=== PATIENT | female | born 1980 | race Hispanic/Latino ===

== ENCOUNTER 2018-10-17 12:07 | Emergency (ER) | payer SELFPAY ==
[2018-10-17 13:30] LABS: Urine Bacteria LOADED /HPF (<20); Urine Culture Reflex Order REFLEXED; Urine RBC <5 /HPF (NONE SEEN)
[2018-10-17 13:33] LABS: Urine Blood NEGATIVE (NEG); Urine Glucose NEGATIVE (NEG); Urine Protein NEGATIVE (NEG); Urine Specific Gravity 1.025 (1.005-1.030); Urine pH 6.5 (5.0-7.0)
[2018-10-17 13:35] LABS: Absolute Lymphocytes (CBC) 1.9 K/uL (0.7-4.9); Absolute Monocytes 0.4 K/uL (0.1-1.3); Absolute Neutrophil 3.8 K/uL (1.8-8.0); Basophils % 0.8 % (0-1.3); Eosinophils % 1.8 % (0-4.4); Hematocrit 37.3 % (36.0-45.0); Lymphocytes % 30.9 % (15.3-44.8); MPV 10.6 fL (7.6-11.3); Monocytes % 5.6 % (3.3-12.3); RBC Red Blood Cell Count 4.26 M/uL (3.86-4.86)
[2018-10-17 14:00] LABS: Albumin 3.6 g/dL (3.4-5.0); Bilirubin Direct 0.1 mg/dL (0-0.2); Bilirubin Total 0.3 mg/dL (0.2-1.0); Potassium 3.9 mmol/L (3.5-5.1); Protein, Total 7.1 g/dL (6.4-8.2)
[2018-10-17] MEDS ORDERED: CEFTRIAXONE/SWI 1gm 1 GM/10 ML SYR ONE (14:16)
--- NOTE | 2018-10-17 14:34 | RAD REPORT ---
EXAM DESCRIPTION: CT - Abdomen Pelvis W Contrast - 10/17/2018 2:21 pm CLINICAL HISTORY: Abdominal pain COMPARISON: None. TECHNIQUE: Biphasic, helical CT imaging of the abdomen and pelvis was performed following 100 ml non -ionic IV contrast. No oral contrast administered. All CT scans are performed using dose optimization technique as appropriate and may include automated exposure control or mA/KV adjustment according to patient size. FINDINGS: No suspicious findings in the lung bases. The liver, spleen, and pancreas show no suspicious findings. Gallbladder and biliary tree are also wi thout suspicious finding. Symmetric renal function is seen with no hydronephrosis or suspicious renal mass. No pyelonephritis o r acute parenchymal process. No bladder abnormalities. No adrenal abnormality seen. Uterus and ovarie s show no suspicious findings for age. A 2.2 centimeter right ovarian cyst is present. No cyst ruptur e or hemorrhage. No fallopian tube dilatation. No dilated bowel loops or bowel wall thickening. Appendix is normal. No free air, free fluid or infla mmatory stranding. No hernia, mass or bulky lymphadenopathy. No suspicious bony findings. IMPRESSION: Contrast enhanced CT abdomen and pelvis showing no significant or suspicious finding.
--- NOTE | 2018-10-17 14:55 | ER ---
Nurse's Notes [facility] Name: Vero Oconnell Age: 38 yrs Sex: Female : 1980 Arrival Date: 10/17/2018 Time: 12:10 Bed 23 Private MD: Diagnosis: Urinary tract infection, site not specified;Generalized abdominal pain Presentation: 10/17 12:39 Presenting complaint: Patient states: diffuse abdominal pain, intermittent, worse at dm5 night, occurs with and without eating. Denies vomiting. Pain is rated at 8/10. Transition of care: patient was not received from another setting of care. Onset of symptoms was October 14, 2018. Risk Assessment: Do you want to hurt yourself or someone else? Patient reports no desire to harm self or others. Initial Sepsis Screen: Does the patient meet any 2 criteria? No. Patient's initial sepsis screen is negative. Does the patient have a suspected source of infection? No. Patient's initial sepsis screen is negative. Care prior to arrival: None. 12:39 Method Of Arrival: Ambulatory dm5 12:39 Acuity: BRITTNEY 3 dm5 Triage Assessment: 12:39 General: Appears in no apparent distress. Behavior is calm, cooperative. Pain: dm5 Complains of pain in abdomen Pain does not radiate. Pain currently is 8 out of 10 on a pain scale. Neuro: Level of Consciousness is awake, alert, obeys commands, Oriented to person, place, time. Cardiovascular: No deficits noted. Respiratory: No deficits noted. GI: Reports lower abdominal pain, upper abdominal pain, nausea, burning sensation in abdomen. : Denies burning with urination, inability to void, urinary frequency, urgency. Derm: Skin is pink, warm \T\ dry. EQUAL OPPORTUNITY REPRESENTATIVE: 15:12 lmp unknown mg2 Historical: - Allergies: 12:45 No Known Allergies; dm5 - Home Meds: 12:45 None [Active]; dm5 - PMHx: 12:45 None; dm5 - PSHx: 12:45 None; dm5 - Immunization history:: Adult Immunizations up to date. - Social history:: Smoking status: Patient/guardian denies using tobacco. - Ebola Screening: : Patient negative for fever greater than or equal to 101.5 degrees Fahrenheit, and additional compatible Ebola Virus Disease symptoms Patient denies exposure to infectious person Patient denies travel to an Ebola-affected area in the 21 days before illness onset No symptoms or risks identified at this time. Screenin:49 Abuse screen: Denies threats or abuse. Nutritional screening: No deficits noted. tl3 Tuberculosis screening: No symptoms or risk factors identified. Fall Risk None identified. Assessment: 13:49 General: Appears in no apparent distress. well groomed, well developed, well nourished, tl3 Behavior is calm, cooperative, appropriate for age. Pain: Complains of pain in abdomen Quality of pain is described as burning, burning feeling at night only, been feeling it for about two months. Neuro: Level of Consciousness is awake, alert, obeys commands, Oriented to person, place, time, situation, Appropriate for age. Cardiovascular: Patient's skin is warm and dry. Respiratory: Airway is patent Respiratory effort is even, unlabored, Respiratory pattern is regular, symmetrical. GI: Bowel sounds present X 4 quads. Abd is soft and non tender X 4 quads. : Urine is clear. EENT: No signs and/or symptoms were reported regarding the EENT system. Derm: No signs and/or symptoms reported regarding the dermatologic system. Musculoskeletal: No signs and/or symptoms reported regarding the musculoskeletal system. Vital Signs: 12:39 BP 121 / 70; Pulse 68; Resp 18; Temp 97.7(TE); Pulse Ox 100% on R/A; Weight 74.84 kg dm5 (R); Height 4 ft. (121.92 cm); Pain 8/10; 13:49 BP 101 / 64; Pulse 62; Resp 18; Pulse Ox 100% ; tl3 15:11 BP 110 / 60; Pulse 65; Resp 18; Pulse Ox 100% on R/A; Pain 0/10; mg2 12:39 Body Mass Index 50.35 (74.84 kg, 121.92 cm) dm5 ED Course: 12:10 Patient arrived in ED. mr 12:30 Zackery Vizcarra PA is PHCP. jr8 12:30 René Schultz MD is Attending Physician. jr8 12:39 Arm band placed on right wrist. Patient placed in an exam room, on a stretcher. dm5 12:41 Triage completed. dm5 12:50 Placed in gown. Bed in low position. Call light in reach. Side rails up X 1. Door jp3 closed. Warm blanket given. Pillow given. 12:50 Pulse ox on. NIBP on. jp3 13:00 Urine collected: clean catch specimen, clear, jamarcus colored. jp3 13:19 Claudia Landin, RN is Primary Nurse. tl3 13:20 Initial lab(s) drawn, by hi, sent to lab. jp3 13:26 Basic Metabolic Panel Sent. jp3 13:26 CBC with Diff Sent. jp3 13:26 Urine Microscopic Only Sent. jp3 13:27 Lipase Sent. jp3 13:27 Hepatic Function Sent. jp3 13:27 Creatinine for Radiology Sent. jp3 13:27 Urine --Ancillary (enter results) Sent. tl3 13:27 Urine Dipstick--Ancillary (enter results) Sent. tl3 13:27 Inserted saline lock: 20 gauge in right antecubital area, using aseptic technique. jp3 Blood collected. 13:49 No provider procedures requiring assistance completed. tl3 14:[address] via stretcher. tl3 14:25 CT Abd/Pelvis - W/Contrast In Process Unspecified. EDMS 14:54 Odin Sheets MD is Referral Physician. jr8 15:11 IV discontinued, intact, bleeding controlled, No redness/swelling at site. Pressure mg2 dressing applied. Administered Medications: 14:09 Drug: Rocephin 1 grams Route: IV; Rate: calculated rate; Site: right antecubital; tl3 Delivery: Primary tubing; 15:10 Follow up: Response: No adverse reaction; IV Status: Completed infusion mg2 Outcome: 14:54 Discharge ordered by . jr8 15:11 Discharged to home ambulatory. mg2 15:11 Condition: stable 15:11 Discharge instructions given to patient, Instructed on discharge instructions, follow up and referral plans. medication usage, Demonstrated understanding of instructions, follow-up care, medications, Prescriptions given X 2. 15:12 Patient left the ED. mg2 Addendum: 10/20/2018 07:36 Addendum: Culture Results: Positive urine culture. No further action required. Bacteria h b sensitive to prescribed antibiotic. Signatures: Dispatcher [employer] Thea Reis RN RN dm5 Aurelia Jang mr Zackery Vizcarra PA PA jr8 Jennifer Duran RN RN Claudia Landin, RN RN tl3 Ghanshyam Aguillon RN RN mg2 Thanh Silveira jp3 Corrections: (The following items were deleted from the chart) 07:37 07:36 Addendum: Culture Results: Positive urine culture. No further action required. hb hb
--- NOTE | 2018-10-17 14:55 | EDPHYS ---
Physician Documentation [facility] Name: Vero Oconnell Age: 38 yrs Sex: Female : 1980 Arrival Date: 10/17/2018 Time: 12:10 Bed 23 Private MD: ED Physician René Schultz HPI: 10/17 13:12 This 38 yrs old Female presents to ER via Ambulatory with complaints of jr8 Abdominal Pain. 13:12 The patient presents with abdominal pain in the lower abdomen, in the periumbilical jr8 area. Onset: The symptoms/episode began/occurred gradually, 1 month(s) ago. The symptoms do not radiate. Associated signs and symptoms: none. The symptoms are described as burning, vague. Modifying factors: The symptoms are alleviated by nothing, the symptoms are aggravated by nothing. Severity of pain: At its worst the pain was moderate in the emergency department the pain is unchanged. The patient has not experienced similar symptoms in the past. The patient has not recently seen a physician. 13:12 Pain became worse. jr8 WEIGHT CALCULATOR: 15:12 lmp unknown mg2 Historical: - Allergies: 12:45 No Known Allergies; dm5 - Home Meds: 12:45 None [Active]; dm5 - PMHx: 12:45 None; dm5 - PSHx: 12:45 None; dm5 - Immunization history:: Adult Immunizations up to date. - Social history:: Smoking status: Patient/guardian denies using tobacco. - Ebola Screening: : Patient negative for fever greater than or equal to 101.5 degrees Fahrenheit, and additional compatible Ebola Virus Disease symptoms Patient denies exposure to infectious person Patient denies travel to an Ebola-affected area in the 21 days before illness onset No symptoms or risks identified at this time. ROS: 13:12 Eyes: Negative for injury, pain, redness, and discharge, ENT: Negative for injury, jr8 pain, and discharge, Neck: Negative for injury, pain, and swelling, Cardiovascular: Negative for chest pain, palpitations, and edema, Respiratory: Negative for shortness of breath, cough, wheezing, and pleuritic chest pain, Back: Negative for injury and pain, MS/Extremity: Negative for injury and deformity, Skin: Negative for injury, rash, and discoloration, Neuro: Negative for headache, weakness, numbness, tingling, and seizure. 13:12 Abdomen/GI: Positive for abdominal pain, Negative for nausea, vomiting, and diarrhea, abdominal distension, anorexia, dysphagia, hematemesis, black/tarry stool, rectal pain, rectal bleeding, bowel incontinence, flatulence. Exam: 13:12 Eyes: Pupils equal round and reactive to light, extra-ocular motions intact. Lids and jr8 lashes normal. Conjunctiva and sclera are non-icteric and not injected. Cornea within normal limits. Periorbital areas with no swelling, redness, or edema. ENT: Nares patent. No nasal discharge, no septal abnormalities noted. Tympanic membranes are normal and external auditory canals are clear. Oropharynx with no redness, swelling, or masses, exudates, or evidence of obstruction, uvula midline. Mucous membranes moist. Neck: Trachea midline, no thyromegaly or masses palpated, and no cervical lymphadenopathy. Supple, full range of motion without nuchal rigidity, or vertebral point tenderness. No Meningismus. Cardiovascular: Regular rate and rhythm with a normal S1 and S2. No gallops, murmurs, or rubs. Normal PMI, no JVD. No pulse deficits. Respiratory: Lungs have equal breath sounds bilaterally, clear to auscultation and percussion. No rales, rhonchi or wheezes noted. No increased work of breathing, no retractions or nasal flaring. Back: No spinal tenderness. No costovertebral tenderness. Full range of motion. Skin: Warm, dry with normal turgor. Normal color with no rashes, no lesions, and no evidence of cellulitis. MS/ Extremity: Pulses equal, no cyanosis. Neurovascular intact. Full, normal range of motion. Neuro: Awake and alert, GCS 15, oriented to person, place, time, and situation. Cranial nerves II-XII grossly intact. Motor strength 5/5 in all extremities. Sensory grossly intact. Cerebellar exam normal. Normal gait. 13:12 Abdomen/GI: Inspection: obese Bowel sounds: active, all quadrants, Palpation: soft, in all quadrants, moderate abdominal tenderness, in the umbilical area and to the right of the umbilicus , mass, is not appreciated, rebound tenderness, is not appreciated, voluntary guarding, is not appreciated, involuntary guarding, is not appreciated, no appreciated organomegaly, Indicators: McBurney's point is not tender, Gates's sign is negative, Rovsing's sign is negative, Obturator sign is negative, Liver: tenderness, is not appreciated. Vital Signs: 12:39 BP 121 / 70; Pulse 68; Resp 18; Temp 97.7(TE); Pulse Ox 100% on R/A; Weight 74.84 kg dm5 (R); Height 4 ft. (121.92 cm); Pain 8/10; 13:49 BP 101 / 64; Pulse 62; Resp 18; Pulse Ox 100% ; tl3 15:11 BP 110 / 60; Pulse 65; Resp 18; Pulse Ox 100% on R/A; Pain 0/10; mg2 12:39 Body Mass Index 50.35 (74.84 kg, 121.92 cm) dm5 MDM: 13:01 Patient medically screened. jr8 14:53 Data reviewed: vital signs, nurses notes, lab test result(s), radiologic studies, CT jr8 scan. Data interpreted: Pulse oximetry: on room air is 100 %. Interpretation: normal. 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 10/17 13:04 Order name: Urine Microscopic Only; Complete Time: : 10/17 13:04 Order name: Basic Metabolic Panel; Complete Time: 14:10/17 13:04 Order name: CBC with Diff; Complete Time: :10/17 13:04 Order name: Creatinine for Radiology; Complete Time: :10/17 13:04 Order name: Hepatic Function; Complete Time: 14:10/17 13:04 Order name: Lipase; Complete Time: 14:10/17 13:04 Order name: IV Saline Lock; Complete Time: :10/17 13:04 Order name: Labs collected and sent; Complete Time: 13:10/17 13:06 Order name: Urine Dipstick--Ancillary (enter results); Complete Time: 10/17 13:06 Order name: Urine --Ancillary (enter results); Complete Time: 13:54 eb 10/17 13:36 Order name: Urine Culture [facility] 10/17 13:59 Order name: CT Abd/Pelvis - W/Contrast; Complete Time: 14:53 [facility] 10/17 13:04 Order name: Urine Test (obtain specimen); Complete Time: 13:26 [facility] 10/17 13:04 Order name: Urine Dipstick-Ancillary (obtain specimen); Complete Time: 13:26 [facility] Administered Medications: 14:09 Drug: Rocephin 1 grams Route: IV; Rate: calculated rate; Site: right antecubital; tl3 Delivery: Primary tubing; 15:10 Follow up: Response: No adverse reaction; IV Status: Completed infusion mg2 Disposition: 10/17/18 14:54 Discharged to Home. Impression: Urinary tract infection, site not specified, Generalized abdominal pain. - Condition is Stable. - Discharge Instructions: Abdominal Pain, Adult, Urinary Tract Infection, Adult. - Prescriptions for Tramadol 50 mg Oral Tablet - take 1 tablet by ORAL route every 8 hours as needed; 12 tablet. Macrobid 100 mg Oral Capsule - take 1 capsule by ORAL route every 12 hours for 7 days; 14 capsule. - Medication Reconciliation Form, Thank You Letter, Antibiotic Education, Prescription Opioid Use form. - Follow up: Odin Sheets MD; When: 2 - 3 days; Reason: Recheck today's complaints, Continuance of care, Re-evaluation by your physician. - Problem is new. - Symptoms have improved. Addendum: 10/24/2018 08:58 Co-signature as Attending Physician, René Schultz MD I agree with the assessment and k dr plan of care. Signatures: Dispatcher [employer] [facility] Thea Reis, SAMARIA RN dm5 René Schultz MD MD kdr Zackery Vizcarra PA PA jr8 Claudia Landin RN RN tl3 Ghanshyam Aguillon RN RN mg2 Corrections: (The following items were deleted from the chart) 10/17 13:21 13:05 UA MICROSCOPIC+U.LAB.BRZ ordered. [facility] 15:12 14:54 10/17/2018 14:54 Discharged to Home. Impression: Urinary tract infection, site mg2 not specified; Generalized abdominal pain. Condition is Stable. Forms are Medication Reconciliation Form, Thank You Letter, Antibiotic Education, Prescription Opioid Use. Follow up: Odin Sheets; When: 2 - 3 days; Reason: Recheck today's complaints, Continuance of care, Re-evaluation by your physician. Problem is new. Symptoms have improved. jr8
== END 2018-10-17 15:12 | disposition home or self-care (01) ==
LOC: ER 12:07
DX: N39.0 Urinary tract infection, site not specified (principal)
CPT/HCPCS: 36415; 74177; 80048; 80076; 81003; 81015; 81025; 83690; 85025; 87077; 87086; 87088; 87186; 96365; 99284; J0696; Q9967

== ENCOUNTER 2023-03-28 10:16 | Emergency (ER) | payer BC, SELFPAY ==
--- OUTSIDE RECORDS SUMMARY | 2023-03-28 10:21 | XMS REPORT | Continuity of Care Document ---
:1980 Author Organization [facility] t Address [address] [place] [id number] Care Team Providers Name Role Phone CHRETIEN_F Attending Clinician Unavailable CHRETIEN_F Admitting Clinician Unavailable Payers Payer Name Policy Type Policy Number Effective Date Expiration Date Christian rodriguez [facility] [place]OTTIE [id number] 2022 ADVANTAGE (O) 00:00:00 Problems Condition Condition Condition Status Onset Resolution Last Treating Co mments Source Name Details Category Date Date Treatment Clinician Date Acute Acute Problem Active [place] sinusitis Sinusitis 6-21 Comm uni 00:00: ty [facility] Hypothyroi Hypothyroi Problem Active [facility] dism dism 6-15 [facility] 00:00: ty [facility] Vitamin D Vitamin D Problem Active [place] deficiency Deficiency 6-15 Co mmuni 00:00: ty 00 [facility] Fatigue Fatigue Problem Active [place] 6-15 Communi 00:00: ty 00 [facility] Depressive Depressive Problem Active [facility] [place] disorder Disorder 5-16 Commun i 00:00: ty 00 [facility] Urinary Urinary Problem Active [place] tract Tract 5-16 Communi infectious Infectious 00:00: ty disease [facility] Allergies, Adverse Reactions, Alerts This patient has no known allergies or adverse reactions. Social History Smoking Status Start Date Stop Date Source Never Smoker [facility] Medications Ordered Filled Start Stop Current Ordering Indication Dosage Frequency Signature Comments Components Source Medication Medication Date Date Medication? Clinician (SIG) Name Name cefpodoxime cefpodoxime No cefpodoxim [place] 100 mg 100 mg e 100 mg Communi tablet TAKE tablet TAKE tablet ty 1 TABLET BY 1 TABLET BY TAKE 1 Hospita MOUTH EVERY MOUTH EVERY TABLET BY l 12 HOURS 12 HOURS MOUTH Clinic s X10 DAYS X10 DAYS EVERY 12 HOURS X10 DAYS Zoloft 50 Zoloft 50 No 1 Q1D Zoloft 50 [place] mg tablet mg tablet mg tablet Commun[facility] Take 1 Take 1 Take 1 ty tablet tablet tablet Hospita every day every day every day l by oral by oral by oral Clinic s route for route for route for 30 days. 30 days. 30 days. cholecalcif cholecalcif No cholecalci [place] esa esa ferol [facility] (vitamin (vitamin (vitamin ty D3) 1,250 D3) 1,250 D3) 1,250 Hospita mcg (50,000 mcg (50,000 mcg l unit) unit) (50,000 Clinics capsule capsule unit) TAKE 1 TAKE 1 capsule CAPSULE CAPSULE TAKE 1 EVERY WEEK EVERY WEEK CAPSULE BY ORAL BY ORAL EVERY WEEK ROUTE. ROUTE. BY ORAL ROUTE. levothyroxi levothyroxi No levothyrox [place] ne 25 mcg ne 25 mcg ine 25 mcg Communi tablet TAKE tablet TAKE tablet ty 1 TABLET BY 1 TABLET BY TAKE 1 Hospita MOUTH EVERY MOUTH EVERY TABLET BY l DAY DAY MOUTH Clinics DIRECTED DIRECTED EVERY DAY DIRECTED sertraline sertraline No sertraline [place] 50 mg 50 mg 50 mg Communi tablet TAKE tablet TAKE tablet ty 1 TABLET BY 1 TABLET BY TAKE 1 Hospita MOUTH EVERY MOUTH EVERY TABLET BY l DAY FOR 30 DAY FOR 30 MOUTH Cl inics DAYS DAYS EVERY DAY FOR 30 DAYS cholecalcif cholecalcif No cholecalci [place] esa esa ferol Commun[facility] (vitamin (vitamin (vitamin ty D3) 1,250 D3) 1,250 D3) 1,250 Hospita mcg (50,000 mcg (50,000 mcg l unit) unit) (50,000 Clinics capsule capsule unit) TAKE 1 TAKE 1 capsule CAPSULE CAPSULE TAKE 1 EVERY WEEK EVERY WEEK CAPSULE BY ORAL BY ORAL EVERY WEEK ROUTE. ROUTE. BY ORAL ROUTE. levothyroxi levothyroxi No levothyrox [place] ne 25 mcg ne 25 mcg ine 25 mcg Communi tablet TAKE tablet TAKE tablet ty 1 TABLET BY 1 TABLET BY TAKE 1 Hospita MOUTH EVERY MOUTH EVERY TABLET BY l DAY DAY MOUTH Clinics DIRECTED DIRECTED EVERY DAY DIRECTED sertraline sertraline No sertraline [place] 50 mg 50 mg 50 mg Communi tablet TAKE tablet TAKE tablet ty 1 TABLET BY 1 TABLET BY TAKE 1 Hospita MOUTH EVERY MOUTH EVERY TABLET BY l DAY FOR 30 DAY FOR 30 MOUTH Cl inics DAYS DAYS EVERY DAY FOR 30 DAYS Zithromax Zithromax No Zithromax [place] Z-Phani 250 Z-Phani 250 Z-Phani 250 Communi mg tablet mg tablet mg tablet ty TAKE 2 TAKE 2 TAKE 2 Hospita TABLETS TABLETS TABLETS l (500 MG) BY (500 MG) BY (500 MG) Clinics ORAL ROUTE ORAL ROUTE BY ORAL ONCE DAILY ONCE DAILY ROUTE ONCE FOR 1 DAY FOR 1 DAY DAILY FOR THEN 1 THEN 1 1 DAY THEN TABLET (250 TABLET (250 1 TABLET MG) BY ORAL MG) BY ORAL (250 MG) ROUTE ONCE ROUTE ONCE BY ORAL DAILY FOR 4 DAILY FOR 4 ROUTE ONCE DAYS DAYS DAILY FOR 4 DAYS Vital Signs Vital Name Observation Time Observation Value Comments Source BP Diastolic 2023-03-14 00:00:00 70 mm[Hg] [facility] s Height 2023-03-14 00:00:00 60 [in_i] [facility] s BMI (Body Mass 2023-03-14 00:00:00 28.3 kg/m2 [facility]) [facility] BP Systolic 2023-03-14 00:00:00 118 mm[Hg] [facility] Body Weight 2023-03-14 00:00:00 2316.8 [oz_av] [facility] s BP Diastolic 2023-03-08 00:00:00 82 mm[Hg] [facility] s Height 2023-03-08 00:00:00 60 [in_i] [facility] s BMI (Body Mass 2023-03-08 00:00:00 27.9 kg/m2 [facility]) [facility] s BP Systolic 2023-03-08 00:00:00 127 mm[Hg] [facility] Body Weight 2023-03-08 00:00:00 2288 [oz_av] [facility] s BP Diastolic 2023-02-06 00:00:00 64 mm[Hg] [facility] s Height 2023-02-06 00:00:00 60 [in_i] [facility] s BMI (Body Mass 2023-02-06 00:00:00 27.6 kg/m2 [facility]) [facility] s BP Systolic 2023-02-06 00:00:00 128 mm[Hg] [facility] s Body Weight 2023-02-06 00:00:00 2262.4 [oz_av] [facility] s Procedures Procedure Date / Time Performed Performing Clinician Sourc e MAMMO, screening, 2023-02-06 00:00:00 [place] Com munity digital, bilateral Hospital Clin ics Tubal Ligation [facility] Plan of Care Planned Activity Planned Date Details Comments Source Diagnostic Test 2023-03-14 rapid SARS CoV 2 Ag, [facility] Pending 00:00:00 QL [place], respiratory Hospital Clinics specimen [code = rapid SARS CoV 2 Ag, QL [place], respiratory specimen] Diagnostic Test 2023-03-14 rapid strep group A, [facility] Pending 00:00:00 throat [code = rapid [facility] strep group A, throat] Future App[facility]ment [facility] [address], [address]; , [place] [address] Instructions [facility] s Encounters Start End Encounter Admission Attending Care Care Encounter Source Date/Time Date/Time Type Type Clinicians Facility Department ID 2023-03-14 2023-03-14 Kamryn [facility] [place] - 00:00:00 00:00:00 [facility] mmuni [employer]-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 2023-02-07 2023-02-07 Outpatient CHRETIEN_F [facility] [id number] [place] 00:00:00 00:00:00 0614 Commun i ty Hosp[facility] Clinics 2023-02-06 2023-02-06 Outpatient CHRETIEN_F [facility] [id number] [place] 00:00:00 00:00:00 0516 [facility] i ty [facility] Clinics 2023-02-06 2023-02-06 Kamryn [facility] [place] [id number] [place] 00:00:00 00:00:00 [facility] - ty C: [address] [facility], [address] [place] [phone] , Ph. 2023-02-05 2023-02-05 Outpatient CHRETIEN_F [facility] 1318 [place] 00:00:00 00:00:00 0515 [facility] i ty [facility] Clinics 2023-01-24 2023-01-24 Outpatient CHRETIEN_F [facility] 1318 [place] 00:00:00 00:00:00 0503 Commun i ty Hospita l Clinics Results This patient has no known results.
[2023-03-28] MEDS ORDERED: FAMOTIDINE 20 MG/2 ML VIAL IV ONE (10:50)
[2023-03-28] MEDS ORDERED: NA CHLORIDE 0.9% 1,000 ML ONE (10:50)
[2023-03-28 10:51] LABS: Absolute Lymphocytes (CBC) 1.7 K/uL (0.7-4.9); Hematocrit 37.2 % (36.0-45.0); MCV 86.8 fL (80-100); RBC Red Blood Cell Count 4.28 M/uL (3.86-4.86); Specific Gravity 1.015 (1.005-1.030)
[2023-03-28 10:52] LABS: Specific Gravity 1.015 (1.005-1.030); Urine Bacteria None Seen /HPF (<20); Urine Bilirubin NEGATIVE (Negative); Urine Blood Negative (Negative); Urine Clarity Clear (Clear); Urine Color Colorless (Yellow); Urine Glucose NEGATIVE (Negative); Urine Mucus Slight /HPF (None Seen); Urine Protein NEGATIVE (Negative); Urine RBC <5 /HPF (None Seen); Urine Urobilinogen Normal (Normal); Urine pH 6.5 (5.0-7.0)
[2023-03-28 11:06] LABS: Albumin 3.7 g/dL (3.4-5.0); Bilirubin Total 0.3 mg/dL (0.2-1.0); Potassium 3.9 mEq/L (3.5-5.1); Protein, Total 7.2 g/dL (6.4-8.2)
--- NOTE | 2023-03-28 12:04 | EDPHYS ---
Physician Documentation [facility] Name: Vero Oconnell Age: 42 yrs Sex: Female : 1980 Arrival Date: 03/28/2023 Time: 10:16 Bed 14 Private MD: ED Physician Wilfredo Pickens HPI: 03/28 12:09 This 42 yrs old Female presents to ER via Ambulatory with complaints of kb Abdominal Pain. 12:09 The patient presents with abdominal pain in the left upper quadrant. Onset: The kb symptoms/episode began/occurred last night. The symptoms do not radiate. Associated signs and symptoms: none. The symptoms are described as constant. Modifying factors: The symptoms are alleviated by nothing, the symptoms are aggravated by nothing. Severity of pain: At its worst the pain was moderate in the emergency department the pain is unchanged. The patient has experienced similar episodes in the past. The patient has not recently seen a physician. Pt reports LUQ pain that started last night and resolved after taking some OTC medication, but she still has a burning sensation. States this has happened multiple times in the past. Denies n/v/d/f. 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 - Social history:: Smoking status: Patient denies any tobacco usage or history of. Patient/guardian denies using alcohol. ROS: 12:12 Constitutional: Negative for fever, chills, and weight loss. kb 12:12 Abdomen/GI: Positive for abdominal pain, Negative for nausea, vomiting, and diarrhea. 12:12 All other systems are negative. Exam: 12:12 Constitutional: This is a well developed, well nourished patient who is awake, alert, kb and in no acute distress. Head/Face: Normocephalic, atraumatic. ENT: Moist Mucous membranes Cardiovascular: Regular rate and rhythm with a normal S1 and S2. No gallops, murmurs, or rubs. No pulse deficits. Respiratory: Respirations even and unlabored. No increased work of breathing. Talking in full sentences Skin: Warm, dry with normal turgor. Normal color. MS/ Extremity: Pulses equal, no cyanosis. Neurovascular intact. Full, normal range of motion. Neuro: Awake and alert, GCS 15, oriented to person, place, time, and situation. Moves all extremities. Normal gait. 12:15 Abdomen/GI: Inspection: abdomen appears normal, Bowel sounds: normal, Palpation: soft, kb in all quadrants, mild abdominal tenderness, in the left upper quadrant, right lower quadrant and left lower quadrant. Vital Signs: 10:24 Pulse 80; Resp 18; Temp 98.3(O); Pulse Ox 100% on R/A; Weight 65.77 kg; Height 4 ft. 0 ld1 in. ; Pain 8/10; 10:25 BP 122 / 77; ld1 12:03 BP 115 / 70; Pulse 68; Resp 18; Pulse Ox 100% ; ko1 10:24 Body Mass Index 44.25 (65.77 kg, 121.92 cm) ld1 10:24 Pain Scale: Adult ld1 MDM: 10:21 Patient medically screened. kb 12:13 Differential diagnosis: gastritis, gastroesophageal reflux disease, non-specific abd kb pain. Data reviewed: vital signs, nurses notes. Test considered but Not performed: CT: CT considered, but labs wnl, symptoms resolved after pepcid, afebrile, nontoxic in appearance. . Counseling: I had a detailed discussion with the patient and/or guardian regarding: the historical points, exam findings, and any diagnostic results supporting the discharge/admit diagnosis, lab results, the need for outpatient follow up, a family practitioner, to return to the emergency department if symptoms worsen or persist or if there are any questions or concerns that arise at home. 03/28 10:26 Order name: CBC with Diff; Complete Time: 11: kb 03/28 10:26 Order name: CMP; Complete Time: 11:24 kb 03/28 10:26 Order name: Lipase; Complete Time: 11:24 kb 03/28 10:26 Order name: Test, Urine; Complete Time: 11: kb 03/28 10:26 Order name: Urinalysis w/ reflexes; Complete Time: 11:06 kb 03/28 10:26 Order name: IV Saline Lock; Complete Time: 10:38 kb 03/28 10:26 Order name: Labs collected and sent; Complete Time: 10:38 kb Administered Medications: 10:46 Drug: NS 0.9% IV 1000 ml Route: IV; Rate: 1 bolus; Site: left antecubital; ld1 12:05 Follow up: Response: No adverse reaction; IV Status: Completed infusion; IV Intake: ko1 1000ml 10:46 Drug: Famotidine IVP 20 mg Route: IVP; Site: left antecubital; ld1 12:05 Follow up: Response: No adverse reaction ko1 Disposition: 15:29 Co-signature as Attending Physician, Wilfredo Pickens MD I reviewed the patient's care rn provided by the Advanced Practice Provider and agree with the diagnosis and treatment plan. Disposition Summary: 03/28/23 12:04 Discharge Ordered Location: Home kb Condition: Stable kb Diagnosis - Upper abdominal pain, unspecified kb Followup: kb - With: Emergency Department - When: As needed - Reason: Worsening of condition Followup: kb - With: Private Physician - When: 2 - 3 days - Reason: Recheck today's complaints, Continuance of care, Re-evaluation by your physician Discharge Instructions: - Discharge Summary Sheet kb - Abdominal Pain, Adult, [id number] kb - Gastroesophageal Reflux Disease, Adult, [id number] kb Forms: - Medication Reconciliation Form kb - Thank You Letter kb - Antibiotic Education kb - Prescription Opioid Use kb - [email or web address] kb Signatures: Dispatcher [employer] EDMS Jenni Murray FNP-C PIPELINE EXECUTIVE-Wilfredo Washburn MD MD rn Sims, Lauren, RN RN ld1 Helen Lopez RN ko1 Corrections: (The following items were deleted from the chart) 12:16 12:12 Constitutional: This is a well developed, well nourished patient who is awake, kb alert, and in no acute distress. Head/Face: Normocephalic, atraumatic. kb
--- NOTE | 2023-03-28 12:04 | ER ---
Nurse's Notes [facility] Name: Vero Oconnell Age: 42 yrs Sex: Female : 1980 Arrival Date: 03/28/2023 Time: 10:16 Bed 14 Private MD: Diagnosis: Upper abdominal pain, unspecified Presentation: 03/28 10:24 Chief complaint: Patient states: LUQ pain since last night. Lower abdominal tenderness. ld1 Denies N/V/D. No fever. Coronavirus screen: At this time, the client does not indicate any symptoms associated with coronavirus-19. Ebola Screen: No symptoms or risks identified at this time. Initial Sepsis Screen: Does the patient meet any 2 criteria? No. Patient's initial sepsis screen is negative. Does the patient have a suspected source of infection? No. Patient's initial sepsis screen is negative. Risk Assessment: Do you want to hurt yourself or someone else? Patient reports no desire to harm self or others. Onset of symptoms was March 28, 2023 at 10:25. 10:24 Method Of Arrival: Ambulatory ld1 10:24 Acuity: BRITTNEY 3 ld1 Triage Assessment: 10:25 General: Appears in no apparent distress. comfortable, Behavior is calm, cooperative, ld1 appropriate for age. Pain: Complains of pain in abdomen Pain does not radiate. Pain currently is 8 out of 10 on a pain scale. Quality of pain is described as throbbing. EENT: No signs and/or symptoms were reported regarding the EENT system. Neuro: Level of Consciousness is awake, alert, obeys commands, Oriented to person, place, time, situation. Cardiovascular: Capillary refill < 3 seconds Patient's skin is warm and dry. Respiratory: Airway is patent Respiratory effort is even, unlabored. GI: Abdomen is flat, non-distended. : No signs and/or symptoms were reported regarding the genitourinary system. Derm: No signs and/or symptoms reported regarding the dermatologic system. Musculoskeletal: No signs and/or symptoms reported regarding the musculoskeletal system. 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 - Social history:: Smoking status: Patient denies any tobacco usage or history of. Patient/guardian denies using alcohol. Screenin:39 [facility] ED Fall Risk Assessment (Adult) History of falling in the last 3 months, ld1 including since admission No falls in past 3 months (0 pts). Abuse screen: Denies threats or abuse. Denies injuries from another. Nutritional screening: No deficits noted. Tuberculosis screening: No symptoms or risk factors identified. Assessment: 10:39 Reassessment: See triage assessment. ld1 12:17 GI: Bowel sounds present X 4 quads. Abd is soft and non tender. ko1 Vital Signs: 10:24 Pulse 80; Resp 18; Temp 98.3(O); Pulse Ox 100% on R/A; Weight 65.77 kg; Height 4 ft. 0 ld1 in. ; Pain 8/10; 10:25 BP 122 / 77; ld1 12:03 BP 115 / 70; Pulse 68; Resp 18; Pulse Ox 100% ; ko1 10:24 Body Mass Index 44.25 (65.77 kg, 121.92 cm) ld1 10:24 Pain Scale: Adult ld1 ED Course: 10:19 Patient arrived in ED. am2 10:21 Jenn[facility]C [facility] kb 10:21 Wilfredo Pickens MD is Attending Physician. kb 10:25 Triage completed. ld1 10:25 Arm band placed on right wrist. ld1 10:38 Test, Urine Sent. ld1 10:38 Urinalysis w/ reflexes Sent. ld1 10:38 CBC with Diff Sent. ld1 10:38 CMP Sent. ld1 10:38 Lipase Sent. ld1 10:38 Inserted saline lock: 20 gauge in left antecubital area, using aseptic technique. Blood ld1 collected. 10:39 Patient has correct armband on for positive identification. Placed in gown. Bed in low ld1 position. Call light in reach. Side rails up X2. satellite project site monitor on. Pulse ox on. NIBP on. Door closed. Noise minimized. Warm blanket given. 10:39 No provider procedures requiring assistance completed. ld1 10:49 Helen Lopez, SAMARIA is Primary Nurse. ko1 12:17 IV discontinued, intact, bleeding controlled, No redness/swelling at site. Pressure ko1 dressing applied. Administered Medications: 10:46 Drug: NS 0.9% IV 1000 ml Route: IV; Rate: 1 bolus; Site: left antecubital; ld1 12:05 Follow up: Response: No adverse reaction; IV Status: Completed infusion; IV Intake: ko1 1000ml 10:46 Drug: Famotidine IVP 20 mg Route: IVP; Site: left antecubital; ld1 12:05 Follow up: Response: No adverse reaction ko1 Medication: 10:39 VIS not applicable for this client. ld1 Intake: 12:05 IV: 1000ml; Total: 1000ml. ko1 Outcome: 12:04 Discharge ordered by MD. nicholas 12:17 Discharged to home ambulatory. ko1 12:17 Condition: improved 12:17 Discharge instructions given to patient, Instructed on discharge instructions, follow up and referral plans. Demonstrated understanding of instructions, follow-up care. 12:17 Patient left the ED. ko1 Signatures: Jenni Murray, SENIOR BUSINESS MANAGER-C SENIOR BUSINESS MANAGER-Shana Sims am2 Mary Blackman, RN RN ld1 Helen Lopez, RN RN ko1
[2023-03-28 12:40] VITALS: TEMP 98.3
[2023-03-28 13:01] VITALS: BP 131/68; O2SAT 100
== END 2023-03-28 12:17 | disposition home or self-care (01) ==
LOC: ER 10:16
DX: R10.12 Left upper quadrant pain (principal)
CPT/HCPCS: 96361; 85025; 81001; 36415; 81025; 83690; 80053; 96374; 99285; J7030

== ENCOUNTER 2025-02-13 13:35 | Emergency (ER) | payer BC ==
--- OUTSIDE RECORDS SUMMARY | 2025-02-13 13:37 | XMS REPORT | Continuity of Care Document ---
Author Name Unknown Address [address] [facility] [address] [place] [address] [facility] [place] Address [address] [facility] 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 Name Role Phone CHRETIEN_F Attending Clinician Unavailable CHRETIEN_F Admitting Clinician Unavailable Payers Payer Name Policy Type Policy Number Effective Date Expirati on Date Source [place] [id number] 2022 00:00:00 Problems Condition Name Condition Details Condition Category Status Onset Date Resolution Date Last Treatment Date Treating Clinician Comments Source Wheezing Wheezing Problem Active 2023-09 0-17 00:00: 00 [facility] Cough Cough Problem Active 2023-09 0-17 00:00: 00 [facility] Mixed anxiety and depressive disorder Mixed Anxiety and Depressive Disorder Problem Active 7-18 00:00: 00 [facility] Allergic rhinitis Allergic Rhinitis Problem Active 7-18 00:00: 00 [facility] Pain in throat Pain in Throat Problem Active 3-21 00:00: 00 [facility] Acute urinary tract infection Acute Urinary Tract Infection Problem Active 2022-09 2-18 00:00: 00 [facility] Insomnia Insomnia Problem Active 2022-09 0-12 00:00: 00 [facility] Hyperchole sterolemia Hyperchole sterolemia Problem Active 9-14 00:00: 00 [facility] Pain of right shoulder joint Pain of Right Shoulder Joint Problem Active - 00:00: 00 [facility] Acute sinusitis Acute Sinusitis Problem Active 03-14 00:00: 00 [facility] Hypothyroi dism Hypothyroi dism Problem Active 03-08 00:00: 00 [facility] Vitamin D deficiency Vitamin D Deficiency Problem Active 03-08 00:00: 00 [facility] Fatigue Fatigue Problem Active 03-08 00:00: 00 [facility] Depressive disorder Depressive Disorder Problem Active 02-06 00:00: 00 [facility] Urinary tract infectious disease Urinary Tract Infectious Disease Problem Active 02-06 00:00: 00 [facility] Social History Smoking Status Start Date Stop Date Source Never Smoker [facility] Medications Ordered Medication Name Filled Medication Name Start Date Stop Date Current Medication? Ordering Clinician Indication Dosage Frequency Signature (SIG) Comments Components Source levothyroxi ne 25 mcg tablet TAKE 1 TABLET BY MOUTH EVERY DAY DIRECTED levothyroxi ne 25 mcg tablet TAKE 1 TABLET BY MOUTH EVERY DAY DIRECTED No levothyrox ine 25 mcg tablet TAKE 1 TABLET BY MOUTH EVERY DAY DIRECTED [facility] rosuvastati n 10 mg tablet TAKE 1 TABLET BY MOUTH EVERY DAY rosuvastati n 10 mg tablet TAKE 1 TABLET BY MOUTH EVERY DAY No rosuvastat in 10 mg tablet TAKE 1 TABLET BY MOUTH EVERY DAY [facility] sertraline 100 mg tablet Take 1.5 tablets every day by oral route. sertraline 100 mg tablet Take 1.5 tablets every day by oral route. No 1.5 Q1D sertraline 100 mg tablet Take 1.5 tablets every day by oral route. [facility] trazodone 50 mg tablet 1/2 tablet to 1 tablet every night as needed trazodone 50 mg tablet 1/2 tablet to 1 tablet every night as needed No trazodone 50 mg tablet 1/2 tablet to 1 tablet every night as needed [facility] triamcinolo ne acetonide 0.1 % topical cream APPLY THIN COAT TO AFFECTED AREA TWICE A DAY triamcinolo ne acetonide 0.1 % topical cream APPLY THIN COAT TO AFFECTED AREA TWICE A DAY No triamcinol one acetonide 0.1 % topical cream APPLY THIN COAT TO AFFECTED AREA TWICE A DAY [facility] albuterol sulfate HFA 90 mcg/actuati on aerosol inhaler Inhale 2 puffs every 4 hours by inhalation route as needed, for shortness of breath and or wheezing. albuterol sulfate HFA 90 mcg/actuati on aerosol inhaler Inhale 2 puffs every 4 hours by inhalation route as needed, for shortness of breath and or wheezing. No 2puff(s ) Q4H albuterol sulfate HFA 90 mcg/actuat ion aerosol inhaler Inhale 2 puffs every 4 hours by inhalation route as needed, for shortness of breath and or wheezing. [facility] bromphenira mine-pseudo ephedrine-D M 2 mg-30 mg-10 mg/5 mL oral syrup Take 10 mL every 4 hours by oral route as needed, for cough. bromphenira mine-pseudo ephedrine-D M 2 mg-30 mg-10 mg/5 mL oral syrup Take 10 mL every 4 hours by oral route as needed, for cough. No 10mL Q4H bromphenir amine-pseu doephedrin e-DM 2 mg-30 mg-10 mg/5 mL oral syrup Take 10 mL every 4 hours by oral route as needed, for cough. [facility] prednisone 20 mg tablet Take 2 tablets every day by oral route for 5 days. prednisone 20 mg tablet Take 2 tablets every day by oral route for 5 days. No 2 Q1D prednisone 20 mg tablet Take 2 tablets every day by oral route for 5 days. [facility] Vital Signs Vital Name Observation Time Observation Value Comments S ource Height 2024-07-10 00:00:00 60 [in_i] [facility] Body Weight 2024-07-10 00:00:00 2304 [oz_av] [facility] BP Systolic 2024-07-10 00:00:00 120 mm[Hg] [facility] BMI (Body Mass Index) 2024-07-10 00:00:00 28.1 kg/m2 [facility] BP Diastolic 2024-07-10 00:00:00 76 mm[Hg] [facility] Height 2024-04-10 00:00:00 60 [in_i] [facility] Body Weight 2024-04-10 00:00:00 2208 [oz_av] [facility] BP Systolic 2024-04-10 00:00:00 110 mm[Hg] [facility] BMI (Body Mass Index) 2024-04-10 00:00:00 27 kg/m2 [facility] BP Diastolic 2024-04-10 00:00:00 64 mm[Hg] [facility] Body Weight 2023-12-13 00:00:00 2182.4 [oz_av] [facility] BP Systolic 2023-12-13 00:00:00 117 mm[Hg] [facility] BMI (Body Mass Index) 2023-12-13 00:00:00 26.6 kg/m2 [facility] BP Diastolic 2023-12-13 00:00:00 64 mm[Hg] [facility] Height 2023-12-13 00:00:00 60 [in_i] [facility] BP Systolic 2023-09-10 00:00:00 107 mm[Hg] [facility] Body Weight 2023-09-10 00:00:00 2208 [oz_av] [facility] BMI (Body Mass Index) 2023-09-10 00:00:00 27 kg/m2 [facility] Height 2023-09-10 00:00:00 60 [in_i] [facility] BP Diastolic 2023-09-10 00:00:00 60 mm[Hg] [facility] BP Diastolic 2023-07-05 00:00:00 60 mm[Hg] [facility] Body Weight 2023-07-05 00:00:00 2224 [oz_av] [facility] BMI (Body Mass Index) 2023-07-05 00:00:00 27.1 kg/m2 [facility] Height 2023-07-05 00:00:00 60 [in_i] [facility] BP Systolic 2023-07-05 00:00:00 109 mm[Hg] [facility] Body Weight 2023-06-07 00:00:00 2275.2 [oz_av] [facility] BP Systolic 2023-06-07 00:00:00 122 mm[Hg] [facility] BP Diastolic 2023-06-07 00:00:00 70 mm[Hg] [facility] Height 2023-06-07 00:00:00 60 [in_i] [facility] BMI (Body Mass Index) 2023-06-07 00:00:00 27.8 kg/m2 [facility] BP Diastolic 2023-03-14 00:00:00 70 mm[Hg] [facility] Height 2023-03-14 00:00:00 60 [in_i] [facility] BMI (Body Mass Index) 2023-03-14 00:00:00 28.3 kg/m2 [facility] BP Systolic 2023-03-14 00:00:00 118 mm[Hg] [facility] Body Weight 2023-03-14 00:00:00 2316.8 [oz_av] [facility] BP Diastolic 2023-03-08 00:00:00 82 mm[Hg] [facility] Height 2023-03-08 00:00:00 60 [in_i] [facility] BMI (Body Mass Index) 2023-03-08 00:00:00 27.9 kg/m2 [facility] BP Systolic 2023-03-08 00:00:00 127 mm[Hg] [facility] Body Weight 2023-03-08 00:00:00 2288 [oz_av] [facility] BP Diastolic 2023-02-06 00:00:00 64 mm[Hg] [facility] Height 2023-02-06 00:00:00 60 [in_i] [facility] BMI (Body Mass Index) 2023-02-06 00:00:00 27.6 kg/m2 [facility] BP Systolic 2023-02-06 00:00:00 128 mm[Hg] [facility] Body Weight 2023-02-06 00:00:00 2262.4 [oz_av] [facility] Procedures Procedure Date / Time Performed Performing Clinicia n Source XR, chest, 2 view 2024-07-10 00:00:00 [facility] XR, shoulder, 2 or more view 2023-06-07 00:00:00 [facility] MAMMO, screening, digital, bilateral 2023-02-06 00:00:00 [facility] Tubal Ligation [facility] Encounters Start Date/Time End Date/Time Encounter Type Admission Type Attending Clinicians Care Facility Care Department Encounter ID Source 2024-07-10 00:00:00 2024-07-10 00:00:00 ÁLVARO Mendiola-Lou C: [address] [place] [address] , Ph. [facility] [address] [facility] 2024-04-10 00:00:00 2024-04-10 00:00:00 RACHEL Mendiola C: [address] [facility], [address] [place] [id number] , Ph. [facility] 07[address] [facility] 2023-12-13 00:00:00 2023-12-13 00:00:00 Outpatient GLENN_F [facility] [id number] [facility] 2023-12-13 00:00:00 2023-12-13 00:00:00 JOSIE MendiolaHAT BLOCKING MACHINE OPERATOR-Lou C: [address] [facility], [address], [place] [address] , Ph. [facility] [id number] [facility] 2023-09-10 00:00:00 2023-09-10 00:00:00 Outpatient CHRETIEN_F [facility] [id number] 1218 [facility] 2023-09-10 00:00:00 2023-09-10 00:00:00 Kamryn Berry COMPUTER CLERK-HAT BLOCKING MACHINE OPERATOR-B C: [address] [facility], [address] [address] , Ph. [facility] [id number] [facility] 2023-07-05 00:00:00 2023-07-05 00:00:00 Outpatient CHRETIEN_F [facility] [id number] [facility] 2023-07-05 00:00:00 2023-07-05 00:00:00 Kamryn Berry COMPUTER CLERK-HAT BLOCKING MACHINE OPERATOR-B C: [address] [facility], [address], [place] [address] , Ph. [facility] [id number] [facility] 2023-06-07 00:00:00 2023-06-07 00:00:00 Kamryn Berry COMPUTER CLERK-HAT BLOCKING MACHINE OPERATOR-B C: [address] [facility], [address] [address] , Ph. [facility] [id number] [facility] 2023-03-22 00:00:00 2023-03-22 00:00:00 Outpatient CHRETIEN_F [facility] [id number] [facility] 2023-03-14 00:00:00 2023-03-14 00:00:00 Kamryn Berry COMPUTER CLERK-HAT BLOCKING MACHINE OPERATOR-B C: [address] [facility], [address], [place] [address] , Ph. [facility] [id number] [facility] 2023-03-12 00:00:00 2023-03-12 00:00:00 Outpatient CHRETIEN_F [facility] [id number] [id number] [facility] 2023-03-08 00:00:00 2023-03-08 00:00:00 Outpatient CHRETIEN_F [facility] [id number] 0615 [facility] 2023-03-08 00:00:00 2023-03-08 00:00:00 Kamryn Berry COMPUTER CLERK-HAT BLOCKING MACHINE OPERATOR-B C: [address] [facility], [address] [address] , Ph. [facility] [id number] [facility] 2023-02-07 00:00:00 2023-02-07 00:00:00 Outpatient CHRETIEN_F [facility] [id number] [facility] 2023-02-06 00:00:00 2023-02-06 00:00:00 Outpatient CHRETIEN_F [facility] [id number] [facility] 2023-02-06 00:00:00 2023-02-06 00:00:00 Kamryn Berry COMPUTER CLERK-HAT BLOCKING MACHINE OPERATOR-B C: [address] [facility], [address], [place] [address] , Ph. [facility] [id number] [facility] 2023-02-05 00:00:00 2023-02-05 00:00:00 Outpatient CHRETIEN_F [facility] [id number] 0515 [facility] 2023-01-24 00:00:00 2023-01-24 00:00:00 Outpatient CHRETIEN_F [facility] [id number] 0503 [facility] Results Test Description Test Time Test Comments Results Result Co mments Source [facility]
[2025-02-13] MEDS ORDERED: LIDOCAINE 4% PATCH ONE (14:14)
[2025-02-13] MEDS ORDERED: KETOROLAC 30 MG/ML INJ ONE (14:14)
[2025-02-13 15:30] LABS: Specific Gravity 1.029 (1.005-1.030); Sqamous Epithelial <5 /HPF (None Seen); Urine Bacteria 20-50 /HPF (<20); Urine Bilirubin NEGATIVE (Negative); Urine Blood Negative (Negative); Urine Clarity Extremely Turbid (Clear); Urine Color Yellow (Yellow); Urine Culture Reflex Order NOT NEEDED; Urine Glucose NEGATIVE (Negative); Urine Ketones NEGATIVE (Negative); Urine Microscopic Reflex YN ORDER UMIC; Urine Mucus 4+ /HPF (None Seen); Urine Nitrite 2+ (Negative); Urine Protein NEGATIVE (Negative); Urine RBC None Seen /HPF (None Seen); Urine Urobilinogen Normal (Normal); Urine WBC None Seen /HPF (<5)
[2025-02-13 15:33] LABS: Specific Gravity 1.029 (1.005-1.030)
--- NOTE | 2025-02-13 16:17 | RAD REPORT ---
EXAMINATION: CT ABDOMEN AND PELVIS WITHOUT CONTRAST CLINICAL INDICATION: FLANK PAIN TECHNIQUE: CT abdomen and pelvis was performed, without IV contrast, as per department protocol. Axia l, sagittal and coronal reconstructions were obtained. One or more of the following dose reduction techniques were used: Automated exposure control, adjustment of the mA and kV according to the patien t size, and iterative reconstruction. Unless otherwise specified, incidental findings do not require dedicated imaging follow-up. COMPARISON: No prior exam. FINDINGS: The lack of intravenous contrast limits the sensitivity of this exam for evaluation of solid visceral organs, vascular structures, and retroperitoneum. LOWER CHEST: The visualized lung bases are clear. LIVER:Normal in size and contour. No focal lesion. Grossly unremarkable gallbladder. SPLEEN: Normal size. No focal lesion. PANCREAS: No mass, ductal dilation, or kat-pancreatic fluid. ADRENALS: Normal; no mass. KIDNEYS AND URETERS: Normal size and contour. No hydronephrosis. URINARY BLADDER: Normal contour. GASTROINTESTINAL TRACT: No evidence of bowel obstruction, significant free fluid, free air or abscess . APPENDIX: Normal appendix. LYMPH NODES: No lymphadenopathy. MUSCULOSKELETAL: Moderate lower lumbar degenerative changes. ADDITIONAL FINDINGS: None. IMPRESSION: No acute or concerning abnormalities in the abdomen or pelvis, with evaluation limited by lack of IV contrast.
--- NOTE | 2025-02-13 16:21 | EDPHYS ---
Physician Documentation [facility] Name: Vero Oconnell Age: 44 yrs Sex: Female : 1980 Arrival Date: 02/13/2025 Time: 13:35 Bed 20 Private MD: ED Physician Reagan Kaur HPI: 02/13 14:11 This 44 yrs old Female presents to ER via Ambulatory with complaints of Back sb4 Pain. 14:11 left flank pain x 2 weeks. cannot recall any specific injury but does do a lot of sb4 lifting at work. states pain is worse with palpation, even with light touch, and certain movements. states her urine has had a strong odor but denies any burning with urination, frequency, or urgency. denies any n/v/d, fever, or chills. 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 - Infectious Disease History:: Denies. - Social history:: Smoking status: Patient denies any tobacco usage or history of. ROS: 14:12 Constitutional: Negative for fever, chills, and weight loss, sb4 14:12 Back: Positive for flank pain, on the left, 14:12 All other systems are negative, Exam: 14:12 Constitutional: This is a well developed, well nourished patient who is awake, alert, sb4 and in no acute distress. Head/Face: Normocephalic, atraumatic. Eyes: Extra-ocular motions intact. Periorbital areas with no swelling, redness, or edema. ENT: Mucous membranes moist. Cardiovascular: Regular rate and rhythm with a normal S1 and S2. Respiratory: No increased work of breathing, no retractions or nasal flaring. Abdomen/GI: Soft, non-tender, no distension. Skin: Warm, dry with normal turgor. Normal color with no rashes, no lesions, and no evidence of cellulitis. 14:12 Back: CVA tenderness, is noted on the left, 14:12 Neuro: Exam negative for acute changes, focal neuro deficits, motor deficits, sensory deficits, cerebellar deficits, altered mental status, Vital Signs: 13:46 BP 115 / 69; Pulse 82; Resp 16; Temp 97.9; Pulse Ox 100% ; Weight 59.87 kg; Height 5 dd2 ft. 0 in. ; Pain 8/10; 14:00 BP 106 / 64; Pulse 74; Resp 15; Pulse Ox 100% ; me1 15:00 BP 103 / 91; Pulse 61; Resp 15; Pulse Ox 97% ; me1 16:00 BP 112 / 71; Pulse 60; Resp 15; Temp 98.2; Pulse Ox 100% ; me1 13:46 Body Mass Index 25.78 (59.87 kg, 152.4 cm) dd2 13:46 Pain Scale: Adult dd2 MDM: 13:48 Medical Screening Exam initiated sb4 14:13 Differential diagnosis: arthritis, chronic back pain, Joint Injury Pyelonephritis sb4 sprain, Ureterolithiasis. 16:21 Data reviewed: vital signs, nurses notes, lab test result(s), radiologic studies, and sb4 as a result, I will discharge patient. Counseling: I had a detailed discussion with the patient and/or guardian regarding the historical points, exam findings, and any diagnostic results supporting the discharge/admit diagnosis, lab results, radiology results, the need for outpatient follow up, for definitive care, to return to the emergency department if symptoms worsen or persist or if there are any questions or concerns that arise at home. 02/13 14:08 Order name: UA Rfx Michi Cult if indicated; Complete Time: 15:31 sb4 02/13 14:08 Order name: Test, Urine; Complete Time: 15:33 sb4 02/13 14:08 Order name: CT Stone Protocol; Complete Time: 16:18 sb4 Administered Medications: 14:19 Drug: Ketorolac IM 30 mg IM once Route: IM; Site: left deltoid; me1 15:19 Follow up: Response: No adverse reaction; Pain is decreased me1 14:20 Drug: Lidoderm Topical Patch 5 % (700 mg/patch) 1 patches Topical once; leave on for 12 me1 hours; cover most painful area; may cut into smaller pieces {Note: leftt mid back.} Route: Topical; Site: affected area; 15:19 Follow up: Response: No adverse reaction; Pain is decreased me1 Disposition Summary: 02/13/25 16:20 Discharge Ordered Notes: Location: Home sb4 Problem: an ongoing problem sb4 Symptoms: have improved sb4 Condition: Stable sb4 Diagnosis - UTI/ Urinary tract infection, site not specified sb4 - Low back pain sb4 Followup: sb4 - With: Private Physician - When: 1 week - Reason: Recheck today's complaints, Re-evaluation by your physician Discharge Instructions: - Discharge Summary Sheet sb4 - Acute Back Pain, Adult sb4 - Urinary Tract Infection, Adult, [id number] sb4 Forms: - Antibiotic Education sb4 - Patient Portal Instructions sb4 - Leadership Thank You Letter sb4 Prescriptions: - Ibuprofen 800 mg Oral Tablet - take 1 tablet ORAL route every 8 hours As needed take with food; 30 tablet; sb4 Refills: 0, Product Selection Permitted - Bactrim DS 800-160 mg Oral Tablet - take 1 tablet ORAL route every 12 hours for 7 days; 14 tablet; Refills: 0, sb4 Product Selection Permitted - methocarbamol 750 mg Oral tablet - take 1 tablet ORAL route every 4 hours; 20 tablet; Refills: 0, Product sb4 Selection Permitted Addendum: 02/16/2025 12:32 Co-signature as Attending Physician, Reagan Kaur MD I agree with the assessment and c bunrham plan of care. Signatures: Dispatcher [employer] Reagan Jacobs MD MD cha Brown, Sophia, PASameeraC PASameeraC sb4 Edwige Whitfield, RN RN me1 UNIQUE GROSS RN RN dd2 Corrections: (The following items were deleted from the chart) 02/13 14:08 14:08 UA Rfx Michi Cult if indicated+U.LAB.BRZ ordered. EDMS EDMS 14:08 14:08 Test, Urine+UC.LAB.BRZ ordered. EDMS EDMS 14:08 14:08 Stone Protocol+CT.RAD.BRZ ordered. EDMS EDMS
--- NOTE | 2025-02-13 16:21 | ER ---
Nurse's Notes [facility] Name: Vero Oconnell Age: 44 yrs Sex: Female : 1980 Arrival Date: 02/13/2025 Time: 13:35 Bed 20 Private MD: Diagnosis: UTI/ Urinary tract infection, site not specified;Low back pain Presentation: 02/13 13:46 Chief complaint: Patient states: LEFT MIDDLE BACK PAIN THAT HURTS WITH TOUCH AND dd2 CERTAIN MOVEMENTS X 1-2 WEEKS. Coronavirus screen: At this time, the client does not indicate any symptoms associated with coronavirus-19. Ebola Screen: No symptoms or risks identified at this time. Initial Sepsis Screen: Does the patient meet any 2 criteria? No. Patient's initial sepsis screen is negative. Does the patient have a suspected source of infection? No. Patient's initial sepsis screen is negative. Risk Assessment: Do you want to hurt yourself or someone else? Patient reports no desire to harm self or others. Onset of symptoms is unknown. 13:46 Method Of Arrival: Ambulatory dd2 13:46 Acuity: BRITTNEY 3 dd2 Triage Assessment: 13:48 General: Appears in no apparent distress. uncomfortable, Behavior is calm, cooperative, dd2 appropriate for age. Pain: Complains of pain in left mid back Pain does not radiate. Pain currently is 8 out of 10 on a pain scale. Musculoskeletal: Circulation, motion, and sensation intact. Range of motion: intact in all extremities, Tenderness present in left mid back Reports pain in left mid back. 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 - Infectious Disease History:: Denies. - Social history:: Smoking status: Patient denies any tobacco usage or history of. Screenin:23 [facility] ED Fall Risk Assessment (Adult) History of falling in the last 3 months, me1 including since admission No falls in past 3 months (0 pts) Confusion or Disorientation No (0 pts) Intoxicated or Sedated No (0 pts) Impaired Gait No (0 pts) Mobility Assist Device Used No (0 pt) Altered Elimination No (0 pt) Score/Fall Risk Level 0 - 2 = Low Risk Maintained a safe environment, Provided non-skid footwear, Hourly rounding (assess needs \T\ fall precautionary measures) done. Abuse screen: Denies threats or abuse. Nutritional screening: No deficits noted. Tuberculosis screening: No symptoms or risk factors identified. Assessment: 14:20 General: Appears uncomfortable, well groomed, well developed, well nourished, Behavior me1 is calm, cooperative, appropriate for age, Reports LEFT MIDDLE BACK PAIN THAT HURTS WITH TOUCH AND CERTAIN MOVEMENTS X 1-2 WEEKS. Pain: Complains of pain in left mid back Pain does not radiate. Pain currently is 8 out of 10 on a pain scale. Quality of pain is described as aching, Pain began 1-2 weeks Is continuous. 14:23 Neuro: Level of Consciousness is awake, alert, obeys commands, Oriented to person, me1 place, time, situation, Appropriate for age. Cardiovascular: Patient's skin is warm and dry. Respiratory: Airway is patent Respiratory effort is even, unlabored, Respiratory pattern is regular, symmetrical. GI: No signs and/or symptoms were reported involving the gastrointestinal system. : No signs and/or symptoms were reported regarding the genitourinary system. EENT: No signs and/or symptoms were reported regarding the EENT system. Derm: Skin is intact, is healthy with good turgor, Skin is pink, warm \T\ dry. Musculoskeletal: Reports pain in left mid back. Vital Signs: 13:46 BP 115 / 69; Pulse 82; Resp 16; Temp 97.9; Pulse Ox 100% ; Weight 59.87 kg; Height 5 dd2 ft. 0 in. ; Pain 8/10; 14:00 BP 106 / 64; Pulse 74; Resp 15; Pulse Ox 100% ; me1 15:00 BP 103 / 91; Pulse 61; Resp 15; Pulse Ox 97% ; me1 16:00 BP 112 / 71; Pulse 60; Resp 15; Temp 98.2; Pulse Ox 100% ; me1 13:46 Body Mass Index 25.78 (59.87 kg, 152.4 cm) dd2 13:46 Pain Scale: Adult dd2 ED Course: 13:41 Patient arrived in ED. im 13:47 Suzie Crystal PA-C is PHCP. sb4 13:47 Reagan Kaur MD is Attending Physician. sb4 13:48 Triage completed. dd2 13:48 Arm band placed on right wrist. dd2 14:08 Edwige Whitfield, RN is Primary Nurse. me1 14:23 Patient has correct armband on for positive identification. Bed in low position. Call me1 light in reach. Side rails up X2. Provided Education on: POC. Verbalized understanding.. Client placed on continuous cardiac and pulse oximetry monitoring. NIBP monitoring applied. Pulse ox on. NIBP on. 14:23 No provider procedures requiring assistance completed. me1 15:19 Urine collected: clean catch specimen, cloudy. me1 15:46 CT Stone Protocol In Process Unspecified. EDMS 16:30 Patient did not have IV access during this emergency room visit. me1 Administered Medications: 14:19 Drug: Ketorolac IM 30 mg IM once Route: IM; Site: left deltoid; me1 15:19 Follow up: Response: No adverse reaction; Pain is decreased me1 14:20 Drug: Lidoderm Topical Patch 5 % (700 mg/patch) 1 patches Topical once; leave on for 12 me1 hours; cover most painful area; may cut into smaller pieces {Note: leftt mid back.} Route: Topical; Site: affected area; 15:19 Follow up: Response: No adverse reaction; Pain is decreased me1 Medication: 14:23 VIS not applicable for this client. me1 Outcome: 16:20 Discharge ordered by . sb4 16:30 Discharged to home ambulatory, me1 16:30 Condition: stable 16:30 Discharge instructions given to patient, Instructed on discharge instructions, follow up and referral plans. medication usage, Demonstrated understanding of instructions, follow-up care, medications, Prescriptions given X 3, 16:30 Patient left the ED. me1 Signatures: Dispatcher [employer] EDPA Suzie Crystal PA-C PA-C sb4 Roxanne Ramon Michelle, SAMARIA RN me1 UNIQUE GROSS RN RN dd2 Corrections: (The following items were deleted from the chart) 14:20 13:46 Chief complaint: Patient states: LEFT MIDDLE BACK PAIN THAT HURTS WITH TOUCH AND me1 CERTAIN MOVEMENTS X 1-2 WEEKS dd2 14:28 14:20 Pain: Complains of pain in left mid back Pain does not radiate. Pain me1 me1
[2025-02-13 18:02] VITALS: BP 112/71; TEMP 98.2; O2SAT 100
== END 2025-02-13 16:30 | disposition home or self-care (01) ==
LOC: ER 13:35
DX: N39.0 Urinary tract infection, site not specified (principal)
CPT/HCPCS: 81001; 81025; 76377; 74176; 96372; 99284; J2003